=== PATIENT | male | born 1970 | race Hispanic/Latino ===

== ENCOUNTER 2018-03-21 20:15 | Emergency (ER) | payer OTHER ==
[~2018-03-21] VITALS: Ht 170.2 cm; Wt 82.6 kg
--- NOTE | 2018-03-21 20:41 | ED HEADACHE COMPLAINT ---
History of Present Illness General Chief Complaint: General Adult Stated Complaint: "HIGH BLOOD PRESSURE" Source: patient, family Exam Limitations: no limitations Vital Signs & Intake/Output Vital Signs & Intake/Output Vital Signs Date Time Temp Pulse Resp B/P B/P Pulse O2 O2 Flow FiO2 Mean Ox Delivery Rate 03/22 0057 98.0 86 18 137/84 98 Room Air 03/21 2238 97.9 57 18 136/94 97 Room Air 03/21 2144 56 20 148/98 97 Room Air 03/21 2059 97.6 56 18 160/100 03/21 2033 97.6 60 170/121 ED Intake and Output 03/22 0000 03/21 1200 Intake Total Output Total Balance Patient 182 lb Weight Weight Reported by Patient Measurement Method Triage Nurses Notes Reviewed? yes HPI: 47M PMH HTN, HLD, formerly on medication but through lifestyle modification was able to come off of them, presented this morning with right frontal headache and one episode of vomiting. He was given headache medication by coworkers, one of which had "a lot of caffeine". He then flew home, and on arrival checked his BP , which was found to be 210/120, and came to ED. He currently feels well and has no complaints. His headache has resolved, and he denies vision changes, nausea, vomiting, neck stiffness, sore throat, chest pain, palpitations, lightheadedness, SOB, abdominal pain, diarrhea, dysuria. No personal or family history of cardiac disease. Non-smoker. (Amy YOON,Sheyla) Allergies Coded Allergies: latex (HIVES 03/21/18) shellfish derived (VOMITING AND SWELLING, EXACERBATES ASTHMA 03/21/18) Reconcile Medications Amlodipine Besylate 2.5 MG TABLET 1 TAB PO DAILY HYPERTENSION Cetirizine HCl (Zyrtec) 10 MG TABLET 1 TAB PO DAILY SUPPLEMENT (Reported) Fluticasone Propionate 50 MCG/ACTUATION SPRAY.SUSP 1 SPRAY NASB DAILY ALLERGIES (Reported) (Samy YOON,Efe Esparza) Past History Travel History Traveled to [place] past 21 day No Medical History Any Pertinent Medical History? see below for history Cardiovascular: hypertension, hyperlipidemia Respiratory: asthma Gastrointestinal: GERD Surgical History Surgical History: non-contributory Psychosocial History What is your primary language Kazakh Tobacco Use: Current Not Daily ETOH Use: denies use Illicit Drug Use: denies illicit drug use Family History Hx Contributory? No (Sheyla Reyes MD) Review of Systems Review of Systems Constitutional: Reports: no symptoms. Eyes: Reports: no symptoms. Ears, Nose, Throat, Mouth: Reports: no symptoms. Respiratory: Reports: no symptoms. Cardiovascular: Reports: no symptoms. Gastrointestinal/Abdominal: Reports: no symptoms. Genitourinary: Reports: no symptoms. Musculoskeletal: Reports: no symptoms. Skin: Reports: no symptoms. Neurological/Psychological: Reports: no symptoms. Hematologic/Endocrine: Reports: no symptoms. Endocrine: Reports: no symptoms. Immunologic/Allergic: Reports: no symptoms. All Other Systems: Reviewed and Negative (Sheyla Reyes MD) Physical Exam Physical Exam General Appearance: well developed/nourished, no apparent distress Head: atraumatic, normal appearance Eyes: Bilateral: normal appearance. Ears, Nose, Throat: hearing grossly normal Neck: normal inspection, supple, full range of motion Respiratory: normal breath sounds, chest non-tender, no respiratory distress Cardiovascular: regular rate/rhythm Gastrointestinal: soft, non-tender Back: normal range of motion Extremities: normal inspection Psychiatric: awake, alert, oriented x 3 Cranial Nerves: normal hearing, normal speech, PERRL Skin: intact, normal color, warm/dry Core Measures Sepsis Present: No Sepsis Focused Exam Completed? No (Sheyla Reyes MD) Progress Differential Diagnosis: carotid dissection, cav sinus thromb, cluster KERR, encephalitis, IC mass/tumor, intracranial Hem., meningitis, migraine KERR, musculoskeletal pain, post LP headache, sinusitis, SSS thrombosis, subarach. Hem., tension KERR, temporal arteritis, TMJ syndrome, viral cephalgia Plan of Care: Orders Procedure Date/time Status TROPONIN LEVEL 03/22 0000 Complete EKG 03/22 0000 Active URINALYSIS 03/21 2112 Complete TROPONIN LEVEL 03/21 2027 Complete LIPASE 03/21 2027 Complete HEPATIC FUNCTION PANEL 03/21 2027 Complete CBC WITHOUT DIFFERENTIAL 03/21 2027 Complete BASIC METABOLIC PANEL 03/21 2027 Complete AMYLASE 03/21 2027 Complete EKG 03/21 2027 Active Laboratory Tests 03/22/18 0005: Troponin I < 0.01 03/21/18 2153: Urine Color YEL, Urine Clarity CLEAR, Urine pH 5.5, Ur Specific Mcqueeney >= 1.030 , Urine Protein NEG, Urine Ketones NEG, Urine Nitrite NEG, Urine Bilirubin NEG, Urine Urobilinogen 0.2, Ur Leukocyte Esterase NEG, Ur Microscopic EXAM NOT REQUIRED, Urine Hemoglobin NEG, Urine Glucose NEG 03/21/182054: Anion Gap 11, Estimated GFR > 60, BUN/Creatinine Ratio 24.3, Glucose 91, Calcium 9.6, Total Bilirubin 0.6, Direct Bilirubin 0.5 H, AST 17, ALT 38, Alkaline Phosphatase 72, Troponin I < 0.01, Total Protein 7.4, Albumin 4.3, Amylase 64, Lipase 51, CBC w Diff NO MAN DIFF REQ, RBC 5.29, MCV 86.9, MCH 29.1, MCHC 33.5, RDW 12.6, MPV 8.3, Gran % 56.0, Lymphocytes % 30.2, Monocytes % 9.6 H, Eosinophils % 3.4, Basophils % 0.8, Absolute Granulocytes 4.3, Absolute Lymphocytes 2.3, Absolute Monocytes 0.7 H, Absolute Eosinophils 0.3, Absolute Basophils 0.1 Initial ED EKG: normal sinus rhythm, non-specific T-wave changes in precordial leads, no ST changes (Amy YOON,Sheyla) Departure Departure Disposition: HOME OR SELF CARE Condition: Stable Clinical Impression Primary Impression: Hypertensive urgency Referrals: Brittany YOON,Meseret Norman (PCP/Family) Additional Instructions: Follow up with your PCP. Continue to take Amlodipine. If you notice and new or worsening symptoms, return to ER immediately. Departure Forms: Customer Survey General Discharge Information Prescriptions: Current Visit Scripts Amlodipine Besylate 1 TAB PO DAILY #30 TAB (Sheyla Reyes MD) Departure Comments 03/22/18, 1:08am... pt signed out to me... negative trop/ekg x 2... pt is chest pain free, feeling better, safe for discharge, close follow up advised. (Samy YOON,Efe Esparza)
[2018-03-21 21:04] LABS: ABSOLUTE BASOPHIL COUNT 0.1 /CUMM (0.0-0.2); ABSOLUTE EOSINOPHIL COUNT 0.3 /CUMM (0.0-0.7); ABSOLUTE GRANULOCYTE CT 4.3 /CUMM (1.4-6.5); ABSOLUTE LYMPH COUNT 2.3 /CUMM (1.2-3.4); ABSOLUTE MONOCYTE COUNT 0.7 /CUMM (0.10-0.60); BASOPHIL % 0.8 % (0.0-2.0); EOSINOPHIL % 3.4 % (0-5); MEAN CORPUSCULAR HGB 29.1 PG (27.0-31.0); MEAN CORPUSCULAR HGB CONC 33.5 G/DL (33.0-37.0); MEAN CORPUSCULAR VOLUME 86.9 FL (80.0-94.0); MEAN PLATELET VOLUME 8.3 FL (7.4-10.4); PLATELET COUNT 282 /CUMM (130-400); RBC DISTRIBUTION WIDTH 12.6 % (11.5-14.5); RED BLOOD CELL CT 5.29 /CUMM (4.70-6.10); WHITE BLOOD CELL COUNT 7.6 /CUMM (4.8-10.8)
[2018-03-21] MEDS ORDERED: AMLODIPINE BES2.5 M1 PO (22:15)
[2018-03-21] MEDS ORDERED: ZYRTEC10 M3 PO (22:54)
[2018-03-21] MEDS ORDERED: FLUTICASONE PRO16 GM NASB (22:55)
[2018-03-22 00:57] VITALS: BP 137/84
== END 2018-03-22 01:16 ==
LOC: ERH 20:15
PROVIDERS: Pediatrics
DX: I10 Essential (primary) hypertension (principal)
CPT/HCPCS: 81003; 93005; 93010